=== PATIENT | male | born 1950 | race Two or more races ===

== ENCOUNTER 2021-05-21 12:00 | Outpatient (CLI) | payer OTHER | END 2021-05-21 12:30 | disposition home or self-care (01) | LOC: PPH VACUNA 12:00 | PROVIDERS: ATTEND Emergency Medicine Pediatric Emergency Medicine | DX: Z23 Encounter for immunization (principal) ==

== ENCOUNTER 2022-02-01 07:53 | Outpatient (CLI) | payer OTHER | END 2022-02-01 08:15 | disposition home or self-care (01) | LOC: SONOGRAMA 07:53 → TOM 07:53 → SONOGRAMA 08:15 → TOM 08:15 | DX: K57.30 Diverticulosis of large intestine without perforation or abscess without bleeding (principal); Z85.038 Personal history of other malignant neoplasm of large intestine; Z86.010 Personal history of colon polyps; K76.0 Fatty (change of) liver, not elsewhere classified; R16.0 Hepatomegaly, not elsewhere classified ==

== ENCOUNTER → 2022-02-08 | Outpatient (CLI) | payer OTHER | END | disposition home or self-care (01) | LOC: TOM 09:00 | PROVIDERS: ATTEND Internal Medicine Gastroenterology | DX: K57.30 Diverticulosis of large intestine without perforation or abscess without bleeding (principal); Z85.038 Personal history of other malignant neoplasm of large intestine; Z86.010 Personal history of colon polyps; K76.0 Fatty (change of) liver, not elsewhere classified; R16.0 Hepatomegaly, not elsewhere classified ==

== ENCOUNTER 2024-09-08 08:32 | Outpatient (CLI) | payer OTHER | END 2024-09-08 08:34 | disposition home or self-care (01) | LOC: TOM 08:32 | PROVIDERS: ATTEND Internal Medicine Gastroenterology | DX: K57.30 Diverticulosis of large intestine without perforation or abscess without bleeding (principal); Z85.038 Personal history of other malignant neoplasm of large intestine; Z86.0100 Personal history of colon polyps, unspecified; K76.0 Fatty (change of) liver, not elsewhere classified ==